=== PATIENT | female | born 1980 | race Caucasian/White ===

== ENCOUNTER 2017-10-22 03:43 | Emergency (ER) | payer OTHER ==
[~2017-10-22] VITALS: Ht 327.7 cm; Wt 108.0 kg
[~2017-10-22 03:43] MED LIST: FLOMAX0.4 MG PO; KEFLEX500 MG PO; ONDANSETRON HCL4 M2 PO; PERCOCET 5-3251 EACH PO
[2017-10-22] MEDS ORDERED: MOBIC15 MG PO (03:59)
[2017-10-22] MEDS ORDERED: CYMBALTA20 MG PO (04:00)
[2017-10-22] MEDS ORDERED: FISH OIL 1,001000 M2 PO (04:01)
[2017-10-22] MEDS ORDERED: UNICOMPLEX M TA1 TA1 PO (04:01)
[2017-10-22] MEDS ORDERED: MARLISSA1 EACH PO (04:01)
[2017-10-22] MEDS ORDERED: VITAMIN D3400 UNIT PO (04:02)
[2017-10-22 04:30] LABS: ABSOLUTE NEUTROPHILS 8.5 thou/uL (1.4-8.2); BASOPHILS 0.6 % (0.0-2.0); HEMATOCRIT 42.1 % (37.0-47.0); HEMOGLOBIN 13.9 gm/dL (12.0-15.0); LYMPHOCYTES 21.6 % (24.0-44.0); MCH 30.7 pg (26.0-34.0); MCHC 33.1 g/dL (28.0-37.0); MCV 92.6 fL (80.0-100.0); MONOCYTES 4.4 % (1.0-8.0); PLATELET COUNT 311 thou/uL (150-400); POLYS 70.4 % (36.0-66.0); RBC 4.54 mil/uL (4.20-5.00); RDW 14.9 % (10.5-14.5)
[2017-10-22 04:33] LABS: URINE BILIRUBIN NEGATIVE (Negative); URINE BLOOD 2+ (Negative); URINE CLARITY CLEAR; URINE COLOR YELLOW; URINE GLUCOSE-RANDOM* NEGATIVE (Negative); URINE KETONES NEGATIVE (Negative); URINE LEUKOCYTES-REFLEX NEGATIVE (Negative); URINE NITRITE-REFLEX NEGATIVE (Negative); URINE PROTEIN (DIPSTICK) NEGATIVE (Negative); URINE SPECIFIC GRAVITY >= 1.030 (1.005-1.035); URINE UROBILINOGEN 0.2 E.U./dl (0.2-1.0)
[2017-10-22 04:36] LABS: ANION GAP 11 mmol/L (7-16); BUN 14 mg/dL (7-18); CHLORIDE 103 mmol/L (98-107); CO2 25 mmol/L (21-32); CREATININE 0.8 mg/dL (0.6-1.0); GLUCOSE 181 mg/dL (74-106); POTASSIUM 3.9 mmol/L (3.5-5.1); SODIUM 139 mmol/L (136-145)
[2017-10-22 04:41] LABS: ALBUMIN 3.7 g/dL (3.4-5.0); DIRECT BILIRUBIN < 0.1 mg/dL (<0.1-0.3); LIPASE 1123 U/L (73-393); SGOT 18 U/L (15-37); SGPT 42 U/L (30-65); TOTAL BILIRUBIN 0.4 mg/dL (<0.1-1.0); TOTAL PROTEIN 7.4 g/dL (6.4-8.2)
[2017-10-22 04:46] LABS: SQUAMOUS >10 Many /LPF (0-3)
[2017-10-22 04:47] LABS: BACTERIA-REFLEX 1-9 Few /HPF (None Seen); CASTS None Seen /LPF (None Seen); CRYSTALS None Seen /LPF (None Seen); URINE RBC 3-10 Few /HPF (0-2); URINE WBC-REFLEX 6-15 Few /HPF (0-5)
[2017-10-22] MEDS ORDERED: ULTRAM 50MG TAB50 MG PO (05:36)
[2017-10-22] MEDS ORDERED: ZOFRAN ODT4 MG PO (05:36)
[2017-10-22 05:46] VITALS: BP 129/78
== END 2017-10-22 05:48 | disposition home or self-care (01) ==
LOC: ER 03:43
PROVIDERS: Emergency Medicine
DX: K85.90 Acute pancreatitis without necrosis or infection, unspecified (principal); Z90.49 Acquired absence of other specified parts of digestive tract; F17.210 Nicotine dependence, cigarettes, uncomplicated; Z88.0 Allergy status to penicillin; Z88.2 Allergy status to sulfonamides; Z88.5 Allergy status to narcotic agent

== ENCOUNTER 2017-10-22 14:55 | Inpatient (IN) | payer OTHER ==
[~2017-10-22] VITALS: Ht 167.6 cm; Wt 110.4 kg
[~2017-10-22 14:55] MED LIST changes: +CYMBALTA20 MG PO; +FISH OIL 1,001000 M2 PO; +MARLISSA1 EACH PO; +MOBIC15 MG PO; +ULTRAM 50MG TAB50 MG PO; +UNICOMPLEX M TA1 TA1 PO; +VITAMIN D3400 UNIT PO; +ZOFRAN ODT4 MG PO
[2017-10-22 14:59] VITALS: BP 133/81
[2017-10-22 16:15] VITALS: BP 133/81
[2017-10-22 16:23] VITALS: BP 107/68
[2017-10-22 18:36] LABS: CHOLESTEROL 264 mg/dL (<200); HDL CHOLESTEROL 38 mg/dL (>40); LDL CHOLESTEROL 181 mg/dL (<100); TC:HDL 6.9 Ratio (Not establshd); TRIGLYCERIDE 228 mg/dL (<150); VLDL 46 mg/dL (<40)
[2017-10-22 19:25] VITALS: BP 115/78
[2017-10-23 02:13] LABS: GLYCOHEMOGLOBIN (HGB A1C) 6.4 % (4.8-5.6)
[2017-10-23 03:11] LABS: ABSOLUTE NEUTROPHILS 6.7 thou/uL (1.4-8.2); BASOPHILS 0.8 % (0.0-2.0); EOSINOPHILS 3.7 % (0.0-3.0); HEMATOCRIT 39.1 % (37.0-47.0); LYMPHOCYTES 26.4 % (24.0-44.0); MCH 30.7 pg (26.0-34.0); MCHC 33.1 g/dL (28.0-37.0); MCV 92.9 fL (80.0-100.0); MONOCYTES 4.7 % (1.0-8.0); PLATELET COUNT 254 thou/uL (150-400); POLYS 64.4 % (36.0-66.0); RBC 4.21 mil/uL (4.20-5.00); RDW 15.1 % (10.5-14.5); WBC 10.4 thou/uL (4.0-11.0)
[2017-10-23 03:21] LABS: CALCIUM 8.3 mg/dL (8.5-10.1); CREATININE 0.8 mg/dL (0.6-1.0); MAGNESIUM 1.9 mg/dL (1.8-2.4); POTASSIUM 4.1 mmol/L (3.5-5.1)
[2017-10-23 03:37] VITALS: BP 120/65
[2017-10-23 08:25] VITALS: BP 114/73
[2017-10-23 16:55] VITALS: BP 99/65
[2017-10-23 19:18] VITALS: BP 117/67
[2017-10-24 04:03] VITALS: BP 119/74
[2017-10-24 05:17] LABS: HEMATOCRIT 34.6 % (37.0-47.0); HEMOGLOBIN 11.5 gm/dL (12.0-15.0); MCH 30.6 pg (26.0-34.0); MCHC 33.3 g/dL (28.0-37.0); RBC 3.76 mil/uL (4.20-5.00); RDW 15.4 % (10.5-14.5); WBC 9.2 thou/uL (4.0-11.0)
[2017-10-24 05:30] LABS: ALBUMIN 2.7 g/dL (3.4-5.0); CALCIUM 8.3 mg/dL (8.5-10.1); CREATININE 0.7 mg/dL (0.6-1.0); TOTAL BILIRUBIN 0.4 mg/dL (<0.1-1.0); TOTAL PROTEIN 6.2 g/dL (6.4-8.2)
[2017-10-24 08:00] VITALS: BP 124/72
[2017-10-24 10:02] VITALS: BP 119/74
== END 2017-10-24 12:17 | disposition home or self-care (01) | DRG 438 ==
LOC: ER 14:55 → EROBS 15:10 → 4S 17:02
PROVIDERS: Hospitalist; Nurse Practitioner
DX: K85.90 Acute pancreatitis without necrosis or infection, unspecified (principal); E43 Unspecified severe protein-calorie malnutrition; F17.210 Nicotine dependence, cigarettes, uncomplicated; R10.9 Unspecified abdominal pain; Z79.899 Other long term (current) drug therapy; Z88.6 Allergy status to analgesic agent; Z88.0 Allergy status to penicillin; Z88.2 Allergy status to sulfonamides; Z90.49 Acquired absence of other specified parts of digestive tract; Z87.442 Personal history of urinary calculi; Z78.9 Other specified health status; Z68.39 Body mass index [BMI] 39.0-39.9, adult
CPT/HCPCS: 10195